=== PATIENT | male | born 1980 | race African-American/Black ===

== ENCOUNTER → 2024-11-16 | Outpatient (CLI) | payer OTHER, SELFPAY ==
--- NOTE | 2024-11-16 10:18 | MRI_ITS ---
PROCEDURE: SPINE LUMBAR W/WO CONTRAST 11/16/2024 REASON FOR EXAM: WORSENING LEFT PAIN X6 WEEKS, HX OF DISCECTOMY TECHNIQUE: Procedure Code: [id number] Modality: MR Procedure: SPINE LUMBAR W/WO CONTRAST Multiplanar and multisequence images were obtained without and with intravenous gadolinium-based contrast administration. Contrast: Clariscan. Amount: 28 mL. COMPARISON: Lumbar spine x-ray 10/23/2024. FINDINGS: Vertebrae: Preserved in height. Modic changes type 1 at the opposite endplates of L4 and L5. Congenital narrowing of the pedicles. Alignment: Retrolisthesis L5 on S1 by 2 mm. Conus Medullaris: Unremarkable. L1-2: Disc desiccation. Disc bulge. Severe canal stenosis. No foramina stenosis. L2-3: Disc bulge. Right paracentral and foraminal disc herniation measures 4 mm. Facet joint arthropathy and effusion. Severe right foramina stenosis. Severe canal stenosis. Mild left foramina stenosis. L3-4: Disc bulge. A 3 mm central disc protrusion with annular fissure. Facet joint arthropathy. Mild bilateral foramina stenosis. Severe canal stenosis. L4-5: Disc desiccation. Disc bulge. Status post left laminectomy. Left paracentral disc protrusion. Facet joint arthropathy. Severe left foramina stenosis with compression upon the exiting L4 nerve. Moderate right foramina stenosis. L5-S1: Disc bulge. A superimposed 6 mm central disc protrusion. Facet joint arthropathy and ligamentum flavum hypertrophy. Moderate bilateral foramina stenosis and abutment upon the exiting bilateral nerves. Sacrum: Unremarkable. Postcontrast images: Unremarkable. MRI/Spine Lumbar W/WO Contrast IMPRESSION: Status post left laminectomy at L4-L5. No abnormal enhancement or evidence of infectious process. Severe canal stenosis at the remainder disc levels due to disc bulges and conge nital narrowing of the canal. Reading Location: [facility]
--- OUTSIDE RECORDS SUMMARY | 2024-11-16 19:20 | XMS RPT_ITS | CCD ---
Author Organization [facility] Care Team Providers Care Cream Buyer Name Role Phone Paolachatocathie Angeli MCCLAIN Unavailable Unavailabl e Unavailable Primary Care Provider Unavailabl e Kita Bingham Attending Provider [phone] Renuka PANIAGUA, Dr. Suero Attending Provider NO, PHYSICIAN Primary Care Unavailable MALAIKA NICOLE JR. Attending Unav ailable HAJA, PHYSICIAN Primary Care Unavailable MALAIKA NICOLE JR. Attending Unav ailable Pio Grayson Attending Unavailable Kita Garay Attending Unavailable Kita Garay Referring Unavailable Kita Garay Attending Unavailable Medications Current Medications Medication Drug Class(es) Dates Sig (Normalized) Sig (Original) cyclobenzaprine hydrochloride 10 mg oral tablet (1 source) Muscle Relaxant Start: 10-23-2024 take 1 tablet by mouth three times daily as needed for muscle spasms Cyclobenzaprine 10 mg tablet Active 10 mg PO THREE TIMES A DAY as needed for muscle spasm 30 0 October 23, 2024 12:00am lidocaine 0.05 mg/mg medicated patch (2 sources) Antiarrhythmic, Amide Local Anesthetic Start: 04-01-2023 apply 1 dose transdermal route once daily, then apply 1 dose transdermal route every twelve hours lidocaine (Lidoderm) 5 % patch Apply 1 patch topically daily. Remove & discard patch within 12 hours or as directed by . 10 patch 0 04/01/2023 Active Start: 04-01-2023 End: 01-29-2024 1 patch, TransDERmal, Admini ster over 12 Hours, Once, On 04/01/23 at 1125, For 1 dose, Apply patch to lower back. Patch may remain in place for up to 12 hours in any 24 hour period. naproxen 500 mg oral tablet (1 source) Nonsteroidal Anti-inflammatory Drug Start: 04-01-2023 End: 04-16-2023 take 1 tablet by mouth in the morning naproxen (Naprosyn) 500 MG tablet Take 1 tablet (500 mg) by mouth in the morning and 1 tablet (500 mg) in the evening. Take with meals. Do all this for 15 days. 30 tablet 0 04/01/2023 04/16/2023 Active tiZANidine 4 mg oral tablet (1 source) Central alpha-2 Adrenergic Agonist Start: 04-01-2023 End: 04-08-2023 take 1 tablet by mouth every eight hours as needed tiZANidine (Zanaflex) 4 MG tablet Take 1 tablet (4 mg) by mouth every 8 hours as needed for muscle spasms for up to 7 days. 21 tablet 0 04/01/2023 04/08/2023 Active Completed/Discontinued Medications Medication Drug Class(es) Dates Sig (Normalized) Sig (Original) 1 ml ketorolac tromethamine 30 mg/ml cartridge (1 source) Nonsteroidal Anti-inflammatory Drug, Cyclooxygenase Inhibitor Start: 04-01-2023 End: 04-01-2023 ketorolac (Toradol) injection 30 mg 2 ml orphenadrine citrate 30 mg/ml injection (1 source) Muscle Relaxant Start: 04-01-2023 End: 04-01-2023 orphenadrine (Norflex) injection 60 mg Problems Active Problems Problem Classification Problem Date Documented Da te Episodic/Chronic Spondylosis; intervertebral disc disorders; other back problems (4 sources) Lumbago with sciatica, left side; Translations: [Radiculopathy, lumbar region] Onset: 10-12-2024 Episodic Sprains and strains (3 sources) Low back strain; Translations: [Strain of muscle, fascia and tendon of lower back, initial encounter] Onset: 04-01-2023 04-01-2023 Episodic Unclassified (1 source) Unknown / UNK(Unknown) Onset: 12-12-2017 Unclassified (1 source) Low back pain, unspecified; Translations: [Low back pain, unspecified] Onset: 11-04-2024 Past or Other Problems Problem Classification Problem Date Documented Da te Episodic/Chronic Unclassified (1 source) LEFT ANKLE PAIN Onset: 12-12-2017 Unclassified (1 source) Low back pain, unspecified; Translations: [Low back pain, unspecified] Onset: 11-04-2024 Results Test Name Value Interpretation Reference Range Facil ity ED Prov Noteon 11-04-2024 ED Prov Note ED PROVIDER NOTE [facility] EMERGENCY DEPART[facility] NAME: Rome Villeda AGE: 44 y.o. : 1980 VISIT DATE: 11/04/2024 CSN: [id number] PCP: No, Physician Chief Complaint Patient presents with Back Pain Patient has had 3 previous back surgeries and still has flareups of lower back pain. He saw an orthopedic surgeon in [facility] and has an MRI scheduled for November 20, 2024. 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 He refused to go to the hospital or seek medical attention there and drove approximately 7-1/2 hours back here today. He is having what he calls a bad flareup existing of lower back pain but no loss of bowel or bladder continence. He did take a muscle relaxer that was prescribed for him by the orthopedic surgeon while awaiting his MRI or prior to coming to the hospital here today. History reviewed. No pertinent past medical history. Past Surgical History: Procedure Laterality Date BACK SURGERY History reviewed. No pertinent family history. Social History [1] Previous Medications Medication Sig cyclobenzaprine (FLEXERIL) 10 MG tablet Take 1 (one) tablet (10 mg total) by mouth 3 (three) times a day as needed . [DISCONTINUED] HYDROcodone-acetaminoph en (NORCO) 5-325 mg per tablet Take 1 (one) tablet by mouth every 4 (four) hours as needed for pain . [DISCONTINUED] naproxen (EC NAPROSYN) 500 MG EC tablet Take 1 (one) tablet (500 mg total) by mouth 2 (two) times a day as needed . Allergies[2] Review of Systems Musculoskeletal: Positive for back pain. All other systems reviewed and are negative. Patient Vitals for the past 24 hrs: BP Temp Temp src Pulse Resp SpO2 Weight 11/04/24 1609 (!) 130/94 98.6 degrees F (37 degrees C) Oral 68 18 96 % (!) 139.7 kg (308 lb) Physical Exam Vitals and nursing note reviewed. Constitutional: Appearance: Normal appearance. HENT: Head: Normocephalic and atraumatic. Right Ear: External ear normal. Left Ear: External ear normal. Nose: Nose normal. Mouth/Throat: Mouth: Mucous membranes are moist. Eyes: Extraocular Movements: Extraocular movements intact. Conjunctiva/sclera: Conjunctivae normal. Cardiovascular: Rate and Rhythm: Normal rate. Musculoskeletal: Cervical back: Normal range of motion. Lumbar back: Spasms and tenderness present. Decreased range of motion. Comments: Paralumbar musculature bilaterally and left SI region pain with palpation. Pulmonary: Effort: Pulmonary effort is normal. Abdominal: General: There is no distension. Skin: General: Skin is warm and dry. Neurological: General: No focal deficit present. Mental Status: He is alert and oriented to person, place, and time. GCS: GCS eye subscore is 4. GCS verbal subscore is 5. GCS motor subscore is 6. Motor: Motor function is intact. Coordination: Coordination is intact. Gait: Gait is intact. Psychiatric: Mood and Affect: Mood normal. Behavior: Behavior normal. Laboratory & Radiographic Imaging (if done): No results found for this visit on 11/04/24. No orders to display Procedures Medical Decision Making Patient will continue with his Flexeril as needed will start on anti-inflammatory medication and I will give him a short amount of pain medication to use on an as needed basis for severe pain. He should contact his spinal specialist from [facility] or return to the ER if there is change worsening or new concern that arises. Amount and/or Complexity of Data Reviewed External Data Reviewed: notes. Details: 10/12/24 ER The patient has been informed that they may have pre-hypertension or hypertension based on a blood pressure reading in the Emergency Department. I recommend that the patient call the primary care provider listed on their discharge instructions or a physician of their choice as soon as possible to arrange follow-up in the next 4 weeks for further evaluation of possible pre-hypertension or hypertension. . Clinical Impression: 1. Bilateral low back pain, unspecified chronicity, unspecified whether sciatica present ED Disposition ED Disposition Discharge Condition Stable Comment Rome Villeda discharged to home/self care in stable condition. Follow-up Information 1. Kita Garay PA-C. Specialty: Physician Horizontal Drill Operator Why: AYAD to schedule appointment in 1-3 days [address] [facility] [facility] [facility] [address] Contact information for after-discharge care Follow-up information has not been specified. New Prescriptions HYDROcodone-acetaminoph en (NORCO) 5-325 mg per tablet Take 1 (one) tablet by mouth every 6 (six) hours as needed for pain . Discontinued Medications Disp Refills Start End naproxen (EC NAPROSYN) 500 MG EC tablet 10 tablet 0 10/12/2024 11/04/2024 Sig: Take 1 (one) tablet (500 mg total) by mouth 2 (two) t (more content not included)... Normal [facility] L/S Spine Min 4 Viewson 10-03 L/S Spine Min 4 Views [facility] Imaging Services [address] [place] [address] L/S Spine Min 4 Views MR#: [id number] Acct: [id number] Name: ROME VILLEDA Rep #: [id number] : 1980 M 44 From: Daiana Chu MD PCP: Status: DEP AMB Study: L/S Spine Min 4 Views Date of Exam: 10/23/24 Exam# [id number] Ordering Dr: Kita Garay PROCEDURE: L/S SPINE MIN 4 VIEWS 10/23/2024 REASON FOR EXAM: CHRONIC BACK PAIN TECHNIQUE: L/S SPINE MIN 4 VIEWS COMPARISON: None. FINDINGS: BONES: Five [id number] lumbar vertebral bodies. No fracture or focal osseous lesion. Minimal grade 1 retrolisthesis of L2 on L3, unchanged with flexion and extension. Nonspecific straightening of the normal lumbar lordosis. DISC/DEGENERATIVE CHANGES: Moderate L4-L5 and L5-S1 disc space narrowing with small vertebral endplate osteophytes. SOFT TISSUES: No acute abnormality seen. RAD/L/S Spine Min 4 Views IMPRESSION: 1. No acute osseous abnormality. 2. Nonspecific lumbar spine straightening, could reflect muscle spasm. 3. L4-L5 and L5-S1 degenerative disc disease. Reading Location: [id number] CC: PAOLA Aquino Relief Operator: Signed Normal [facility] Orthopedic Visit Reporton Orthopedic Visit Report [facility] [address] [place] [address] OFFICE VISIT Date of Service: 10/23/24 MR#: [id number] Acct: [id number] Name: ROME VILLEDA Rep #: [id number] : 1980 Provider: PAOLA Aquino Age/Sex: 44/M Location: [facility] Status: Signed Intake Vital Signs 10/23/24 10:55 Height 6 ft 7 in Weight: 302 lb BMI 34.0 Intake Visit Reasons: LUMBAR SPINE Accompanied by: Significant Other Allergies No Known Allergies Allergy (Unverified 10/23/24 11:06) Medications ???Medication ???Instructions ???Recorded ???Confirmed ???Type cyclobenzaprine 10 mg tablet 10 mg PO TID PRN muscle spasm #30 10/23/24 10/23/24 Rx tabs PFSH Surgical History (Updated 10/23/24 @ 12:09 by PAOLA Aquino) History of back surgery Family History (Updated 10/23/24 @ 11:08 by Ernestina Kuo) Uncle Diabetes Mother Arthritis Social History (Updated 10/23/24 @ 11:09 by Ernestina Kuo) household members: significant other and children Smoking Status: Current every day smoker tobacco type: cigarettes Tobacco: How many years used: 30 alcohol intake: current alcohol intake frequency: holidays/special occasions only HPI LUMBAR SPINE Details: This documentation accurately reflects the service provided and the decisions made by me, PAOLA Aquino 10/23/24 1053. Part of today???s visit was documented by Ludmila JURADO, acting as scribe. ROME VILLEDA is a 44 year old M here today for his lumbar spine. Patient states that he had had 3 back surgeries in 2017, 2018, 2019 at L4-5 for 2 herniated of the surgeries and a third surgery at a different level for a bulging disc. He does have pain on the left side that starts at the top of his left buttock and radiates down to his ankle. His pain started approximately 6 weeks ago. In that time his pain has changed. Initially his pain extended from the left buttock down the back and side of his left leg to his calf. This calf pain the patient describes as on occasion severe and has made it difficult for him to walk as it worsens with any standing or walking. Currently however his pain is all located on the left lateral calf. He does also have pain on the left lateral calf that feels like a belen horse. Says that over the last 6 weeks this symptom has worsened. Says that he will get occasional flares since his last surgery. Typically the lower back pain flare will last for about a week before it gets better. This current flare that he is and is lasting a lot longer and has been a lot more painful than what his typical flares are. When he was seen in the ED he was given a steroid and muscle relaxer which did not help with his pain. He does have some light numbness in the left leg. When he lays on his left side at night it help the left leg pain but if he lays on his right side the pain increases. The surgeon who did his surgery was Dr. Wale Solares in [place]. He does have weakness in his legs but he had had it since his surgery but denies any new or worsening leg weakness. He denies recent imaging of his lower back. He denies PT or injections. Been taking naproxen, muscle relaxer, and vicodin. No benefit with these. No diabetes, no heart or lung issues, no blood thinners. Patient has not done any physical therapy however he was taught home exercise program back in 2019 after his last surgery from physical therapy and he has been doing the stretches and exercises for his lower back daily over the last 6 weeks without any benefit. 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 Patient denies any worsening balance or dexterity issues. He says that during one of his fusion surgeries they had to go into his neck to relieve some pressure there. He denies any neck pain or radicular symptoms into his arms. Ortho Exam General General: Yes no acute distress Neurologic: Yes alert and Yes oriented x3 Psychologic: Yes reasonable and appropriate Spine SPINE TESTING CERVICAL THORACIC LUMBAR Musculoskeletal Strength 0=absent - 5=normal Details: Neurological exam of the lower extremities shows 5x5 power. Normal sensations across all dermatomes. There is left-sided knee hyperreflexia. No midline or paraspinal tenderness. Physical examination of the back shows a well-healed midline and right side transverse incision. Coding Level of Care Code Off vis,new,level 4 Diagnoses History of discectomy Z98.890 Lumbar radiculopathy M54.16 Assessment and Plan Assessment and Plan (1) History of discectomy: Status: Acute (2) Lumbar radiculopathy: Status: Acute Orders: Orders L/S Spine Min 4 Views Today M54. (more content not included)... Normal [facility] ED Prov Noteon 10-12-2024 ED Prov Note ED PROVIDER NOTE [facility] EMERGENCY DEPART[facility] NAME: Rome Villeda AGE: 44 y.o. : 1980 VISIT DATE: 10/12/2024 CSN: [id number] PCP: No, Physician Chief Complaint Patient presents with Leg Pain Patient has sciatic nerve pain for the past 3 to 4 days. He has had multiple surgeries on his lower back and neck and had the onset of pain 3 to 4 days ago in his left lower back radiating into his left buttock. He has had no loss of bowel or bladder continence. He has also had no recent injuries or falls. He will have flareups of his low back pain at completely random times with no association with movement position or anything else; prior to today, his previous flareup was 3 or 4 months ago and I just toughed it out and it went away on its own. History reviewed. No pertinent past medical history. Past Surgical History: Procedure Laterality Date BACK SURGERY History reviewed. No pertinent family history. Social History [1] No current outpatient medications on file prior to encounter. Allergies[2] Review of Systems Musculoskeletal: Positive for back pain. All other systems reviewed and are negative. Patient Vitals for the past 24 hrs: BP Temp Temp src Pulse Resp SpO2 Weight 10/12/24 1520 (!) 141/88 98.6 degrees F (37 degrees C) Oral 94 18 93 % (!) 142.9 kg (315 lb) Physical Exam Vitals and nursing note reviewed. Constitutional: Appearance: Normal appearance. HENT: Head: Normocephalic and atraumatic. Right Ear: External ear normal. Left Ear: External ear normal. Nose: Nose normal. Mouth/Throat: Mouth: Mucous membranes are moist. Eyes: Extraocular Movements: Extraocular movements intact. Conjunctiva/sclera: Conjunctivae normal. Cardiovascular: Rate and Rhythm: Normal rate. Musculoskeletal: Cervical back: Normal range of motion. Lumbar back: Spasms and tenderness present. No swelling, deformity or bony tenderness. Decreased range of motion. Positive left straight leg raise test. Comments: Most of the tenderness to palpation is in the left paralumbar musculature and left sciatic notch region. Pulmonary: Effort: Pulmonary effort is normal. Abdominal: General: There is no distension. Skin: General: Skin is warm and dry. Neurological: General: No focal deficit present. Mental Status: He is alert and oriented to person, place, and time. Motor: Motor function is intact. Coordination: Coordination is intact. Gait: Gait is intact. Psychiatric: Mood and Affect: Mood normal. Behavior: Behavior normal. Laboratory & Radiographic Imaging (if done): No results found for this visit on 10/12/24. No orders to display Procedures Medical Decision Making Will recommend ice or combination of ice and heat alternating as well as resting in a position of comfort. Will provide anti-inflammatory medication, muscle relaxers as needed, and pain medication as needed for severe pain. Will provide him with local primary care for follow-up and ask him to return to the ER for change worsening or new concern that arises. The patient has been informed that they may have pre-hypertension or hypertension based on a blood pressure reading in the Emergency Department. I recommend that the patient call the primary care provider listed on their discharge instructions or a physician of their choice as soon as possible to arrange follow-up in the next 4 weeks for further evaluation of possible pre-hypertension or hypertension. . Clinical Impression: 1. Left-sided low back pain with left-sided sciatica, unspecified chronicity ED Disposition ED Disposition Discharge Condition Stable Comment Rome Villeda discharged to home/self care in stable condition. Follow-up Information 1. [facility]. Why: [facility] to schedule appointment in 1-[address] days [address] [address] 2. Charli Escamilla MD. Specialty: Orthopedic Surgery Why: AYAD to schedule appointment in 1-3 days Samuel Merlos [facility] [address] Contact information for after-discharge care Follow-up information has not been specified. New Prescriptions naproxen (EC NAPROSYN) 500 MG EC tablet Take 1 (one) tablet (500 mg total) by mouth 2 (two) times a day as needed . cyclobenzaprine (FLEXERIL) 10 MG tablet Take 1 (one) tablet (10 mg total) by mouth 3 (three) times a day as needed . HYDROcodone-acetaminoph en (NORCO) 5-325 mg per tablet Take 1 (one) tablet by mouth every 4 (four) hours as needed for pain . [1] Social History Socioeconomic History Marital status: Single Tobacco Use Smoking status: Every Day Current packs/day: 1.00 Average packs/day: 1 pack/day for 25.0 years (25.0 ttl pk-yrs) Types: Cigarettes Smokeless tobacco: Never Vaping Use Vaping status: Never Used Substance and Sexual Activity Alcohol use: Never Drug use: Never [2] N (more content not included)... 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 CHIEF COMPLAINT Chief Complaint Patient presents with Back Pain Pt presents to ED with c/o R sided lower back pain since yesterday. Denies h/o kidney stones, dysuria, or dysuria. Denies any recents falls/trauma that would explain this pain. Pt is able to control bladder/stool. HISTORY OF PRESENT ILLNESS (Location/Symptom, Timing/Onset, Context/Setting, Quality, Duration, Modifying Factors, Severity) Note limiting factors. I wore appropriate PPE for the entirety of this encounter. HPI Rome Villeda is a 42 y.o. who presents to the emergency department with chief complaint of with midline low back pain since yesterday. Patient states he had a surgery for herniated disc years ago in [place] has had some issues with this from time to time, no red flags such as renal disease, alcohol abuse, IV drug use. No falls injury or trauma. Denies radicular symptoms. Denies fevers or chills bowel or bladder incontinence or fecal or urinary retention. Nursing Notes were reviewed. Limitations to history: None Outside historians: None REVIEW OF SYSTEMS Review of Systems Constitutional: Negative for activity change, appetite change, chills and fever. HENT: Negative for congestion, nosebleeds, postnasal drip, sore throat and trouble swallowing. Eyes: Negative for pain and visual disturbance. Respiratory: Negative for cough and shortness of breath. Cardiovascular: Negative for chest pain. Gastrointestinal: Negative for abdominal pain, nausea and vomiting. Genitourinary: Negative for dysuria, flank pain, hematuria, penile discharge, scrotal swelling and testicular pain. Musculoskeletal: Positive for arthralgias, back pain and myalgias. Negative for joint swelling and neck stiffness. Skin: Negative for rash and wound. Neurological: Negative for dizziness, syncope, weakness and light-headedness. Psychiatric/Behavioral: Negative for agitation and confusion. All other systems reviewed and are negative. Pertinent positives and negatives as per HPI. PAST MEDICAL HISTORY History reviewed. No pertinent past medical history. SURGICAL HISTORY Past Surgical History: Procedure Laterality Date BACK SURGERY CURRENT MEDICATIONS Previous Medications No medications on file ALLERGIES Patient has no known allergies. FAMILY HISTORY No family history on file. SOCIAL HISTORY Social History Socioeconomic History Marital status: Single Tobacco Use Smoking status: Every Day Packs/day: 1 Types: Cigarettes Smokeless tobacco: Never Vaping Use Vaping Use: Every day Substance and Sexual Activity Alcohol use: Yes Comment: occasionally Drug use: Never SCREENINGS PHYSICAL EXAM ED Triage Vitals [04/01/23 1120] Temp Heart Rate Resp BP 37.1 ?C (98.8 ?F) 88 16 (!) 145/93 SpO2 Temp Source Heart Rate Source Patient Position 96 % Temporal Monitor -- BP Location FiO2 (%) -- -- Physical Exam Vitals and nursing note reviewed. Constitutional: General: He is not in acute distress. Appearance: Normal appearance. He is not ill-appearing or toxic-appearing. HENT: Head: Normocephalic and atraumatic. Right Ear: External ear normal. Left Ear: External ear normal. Mouth/Throat: Mouth: Mucous membranes are moist. Pharynx: Oropharynx is clear. Eyes: Extraocular Movements: Extraocular movements intact. Conjunctiva/sclera: Conjunctivae normal. Pupils: Pupils are equal, round, and reactive to light. Cardiovascular: Comments: Regular rate and rhythm, normal S1-S2, no murmurs noted. Radial pulses 2+ metric. Pulmonary: Effort: Pulmonary effort is normal. No respiratory distress. Breath sounds: Normal breath sounds. No stridor. No wheezing or rhonchi. Musculoskeletal: Cervical back: Normal range of motion and neck supple. No rigidity or tenderness. Comments: There is no pain on palpation to the spine. Straight leg raise is negative on the left and right. There is no weakness noted with adduction of either thigh. There is no weakness noted hip flexion, knee extension, knee flexion. There is no weakness noted to dorsiflexion of the foot, dorsiflexion of the great toe or plantarflexion of the foot. Patellar reflexes are 2+ bilaterally. DP pulses are 2+. There are no sensory deficits to the lower extremities, no saddle anesthesia. Sensation is intact to the groin, perianal sensation is intact. Lymphadenopathy: Cervical: No cervical adenopathy. Skin: General: Skin is warm and dry. Capillary Refill: Capillary refill takes less than 2 seconds. Coloration: Skin is not jaundiced or pale. Findings: No bruising or erythema. Neurological: General: No focal deficit present. Mental S (more content not included)... Normal [facility] ED.PDOCon 05-13-2018 ED.PDOC ROME VILLEDA Male [id number] Attending provider: PRE ER ER [id number] Guido Barnett 1980 37 DOS: 05/13/18 Hx/Exam - History of Present Illness Chief Complaint: BACK PAIN Additional Comments: Patient has chronic back pain which he sees Dr. Solares 4. He is takingAnti-inflammatori es but it is not helping. He is supposed to see his doctor today. Today he was getting out of a chair and his back locked up and he fell back down into the chair and felt a pop in his back. No numbness around his rectum or urine or bowel incontinence or retention. No other complaints other than low back pain. - Review of Systems All Other Systems: Pertinent Positives in HPI, All Other Systems Negative Cardiovascular: Denies: Chest Pain Gastrointestinal: Denies: Nausea, Vomiting Musculoskeletal: Back Pain - Past Medical History General History: - Past Surgical History Surgical History: Yes Other (disc herniation, neck) - Social History Smoking Status: Current every day smoker Hx Alcohol Use: Yes Living Conditions: Family - Physical Exam General Appearance: awake, alert, no apparent distress Eyes: conjunctivae clear Head, Ears, Nose, and Throat: mucous membranes moist Neck: full ROM Respiratory: no respiratory distress Back: normal ROM Extremity: normal inspection Neurologic: no motor/sensory deficits, speech clear/fluent Psychiatric: calm, normal affect Skin Exam: warm/dry, normal color - Source of History Source of History: Nursing Notes/Vital Signs/Triage Reviewed and Agree, Old Medical Records Reviewed Note(s) - Physician Notes Additional Notes, See Orders for Details: 05/13/18 03:25 Patient was treated in the emergency department with IM Dilaudid and Norflex. He has an appointment with his back surgeon today so he would not be prescribed any stronger pain medication As this is a chronic issue for him. EKG - EKG EKG Interpretation: Not Applicable Discharge Screen - Discharge Discharge Problem: Back pain Disposition: HOME/SELF CARE Condition: Stable Instructions: DI for Low Back Pain Referrals: Pretty Scales [Primary Care Provider] - Dictated By: Guido Barnett DO Dictated Date/Time:05/13/18311 Electronically Signed Date/Time: 05/13/18325 [facility] ED.PDOCon 04-21-2018 ED.PDOC ROME VILLEDA Male [id number] Attending provider: RADAMES TROY [id number] Kalli Nelson 1980 37 DOS: 04/21/18 Hx/Exam - History of Present Illness Chief Complaint: BACK PAIN Location: lower Symptom Duration: 3-4 days Intensity: moderate Episode Frequency: constant Symptoms Improve with: none Symptoms Worse with: standing Additional Comments: Patient has a history of chronic lower back pain with previous surgeries. He says worse pain for the past 4 days. Denies any new injury. No neurologic symptoms. - Review of Systems All Other Systems: Pertinent Positives in HPI, All Other Systems Negative - Past Medical History General History: - Past Surgical History Surgical History: Yes Other (disc herniation, neck) - Social History Smoking Status: Unknown if ever smoked Hx Alcohol Use: Yes Living Conditions: Family - Physical Exam General Appearance: awake, alert, no apparent distress Eyes: PERRL, EOMI, conjunctivae clear Head, Ears, Nose, and Throat: mucous membranes moist Neck: supple, non-tender, no bony tenderness Respiratory: lungs clear, no wheezes/rhonchi/rales, no respiratory distress, no accessory muscle use Cardiovascular: regular rate, rhythm, no murmur Abdomen/GI: non tender, soft, non-distended Back: no CVA tenderness, no vertebral tenderness Extremity: normal range of motion, non-tender Neurologic: no motor/sensory deficits Psychiatric: oriented x3, calm, normal affect Skin Exam: warm/dry - Source of History Source of History: Nursing Notes/Vital Signs/Triage Reviewed and Agree, Additional Hx from Relatives, Old Medical Records Reviewed Note(s) - Physician Notes Additional Notes, See Orders for Details: 04/21/18 20:21 Patient currently takes diclofenac and a muscle relaxer for his symptoms. They have not been helping at home. We will give him a short term course of the medication and he will follow with his orthopedic surgeon EKG - EKG EKG Interpretation: Not Applicable Discharge Screen - Discharge Discharge Problem: Back pain Disposition: HOME/SELF CARE Condition: Good Instructions: DI for Low Back Pain Prescriptions: Hydrocodone-Acetaminoph en [Murphy 5-325 mg] 1 tab PO Q6H PRN 3 Days #12 tab PRN Reason: Pain Referrals: Pretty Scales [Primary Care Provider] - Dictated By: Kalli Nelson MD Dictated Date/Time:04/21/182003 Electronically Signed Date/Time: 04/21/182023 [facility] ED.PDOCon 02-04-2018 ED.PDOC ROME VILLEDA Male [id number] Attending provider: PRE ER ER [id number] Marisol Sánchez 1980 37 DOS: 02/04/18 Hx/Exam - History of Present Illness Chief Complaint: RASH Location: bilateral forearms Symptom Duration: 2 Symptom Duration: Day(s) Onset of Symptoms: acute s/p putting on old coat Intensity: mild-moderate Quality: red bumps Episode Frequency: constant Radiations: not applicable Symptoms Improve with: none Symptoms Worse with: itching Assoc Sxs/Pertinent Hx: itching Patient/Family Denies: fevers, CP, SOb, sore throat/swelling, N/V/D, abd pain, dizziness, HUYNH Additional Comments: no h/o DM - Review of Systems All Other Systems: Pertinent Positives in HPI, All Other Systems Negative Constitutional: Denies: Fever, Chills, Sweats, Weakness, Malaise Eyes: Denies: Pain, Blurred Vision, Double Vision, Conjunctivae Inflammation, Eyelid Inflammation, Redness, Eye Discharge ENT: Denies: Ear Pain, Nose Congestion, Mouth Pain, Mouth Swelling, Throat Pain, Throat Swelling Respiratory: Denies: Cough, Shortness of Breath, Wheezing Cardiovascular: Denies: Chest Pain, Light Headedness Gastrointestinal: Denies: Nausea, Vomiting, Abdominal Pain, Diarrhea Skin: Rash. Denies: Lesions, Jaundice, Laceration, Abrasion, Bruising Neurological: Denies: Headache, Weakness, Numbness, Incoordination, Change in Speech, Confusion, Seizures - Past Medical History General History: - Past Surgical History Surgical History: Yes Other (disc herniation, neck) - Social History Smoking Status: Current every day smoker Hx Alcohol Use: Yes - Physical Exam General Appearance: awake, alert, no apparent distress Eyes: PERRL, EOMI, conjunctivae clear Head, Ears, Nose, and Throat: pharynx normal, mucous membranes moist Neck: supple, no stridor, full ROM, no meningeal signs Respiratory: lungs clear, no wheezes/rhonchi/rales, no respiratory distress Cardiovascular: regular rate, rhythm, no murmur Extremity: normal range of motion, non-tender, normal inspection, normal capillary refill Pulses: Radial: 2+ Neurologic: no motor/sensory deficits, normal gait, normal strength, normal sensation, speech clear/ fluent Psychiatric: oriented x3, calm Skin Exam: warm/dry, normal color, rash (fine maculopapular rash on bilateral forearms, nothing on hands/web spaces, no celluitis or abscess) - Source of History Source of History: Nursing Notes/Vital Signs/Triage Reviewed and Agree Note(s) - Physician Notes Additional Notes, See Orders for Details: 02/04/18 15:[address] Nicole. 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 Pt will be placed on prednisone. Advised take benadryl PRN itching. Likely contact derm from old coat. EKG - EKG EKG Interpretation: Not Applicable Discharge Screen - Discharge Discharge Problem: Contact dermatitis Disposition: HOME/SELF CARE Additional Instructions: benadryl for itching Condition: Good Instructions: DI for Contact Dermatitis Prescriptions: PredniSONE [Prednisone] 40 mg PO DAILY 4 Days #8 tab Referrals: Pretty Scales [Primary Care Provider] - 2-3 Days Dictated By: Marisol Sánchez PA-C Dictated Date/Time:02/04/18 1534 Electronically Signed Date/Time: 02/04/18 1545 [facility] ANKLE COMP MIN 3 VWS LTon ANKLE COMP MIN 3 VWS LT ANKLE COMP MIN 3 VWS LTOrdering Physician: Vito Jane MD12/12/2017 1:38 PMLEFT ANKLE THREE VIEWSClinical Statement: Pain status post fallComparison: NoneFINDINGS: There is no acute fracture or joint dislocation. The anklemortise is maintained. The joint spaces are appropriate for age. Thehindfoot anatomy is unremarkable. There are no concerning bonelesions. There is no joint effusion.IMPRESSION:Neg ative left ankle. ---- Electronic Signature on File ----Signed By: Yg Rees [email or web address] tated: 12/12/2017 2:26 PMSigned: 12/12/2017 2:26 PM Reported By: YG REES M.D. Signed By: YG REES M.D. [facility] 12-12-2017 [facility] DATE OF SERVICE: 12/12/2017CHIEF COMPLAINT: Left ankle pain.HISTORY OF PRESENT ILLNESS: The patient states that he was at therapy working outyesterday when he jumped and landed incorrectly on the left foot, causing his ankleto invert and he is now having pain on the lateral aspect of the left ankle. Limpingand able to ambulate. No numbness or tingling. No other area of injury. He has noticed it or taken any medication for it. No history of injury to the ankle. He is intherapy currently for back surgery he had back in July 2016.REVIEW OF SYSTEMS: As per HPI.PAST MEDICAL HISTORY/SURGICAL HISTORY/FAMILY HISTORY/SOCIAL HISTORY: Reviewed.PHYSICAL EXAMINATION: Vital signs: Blood pressure 121/86, pulse 77, respiratoryrate 14, temperature 98.7, pulse oximetry 98% on room. General: The patient is wellappearing, sitting on exam room bed, in no apparent distress at the time. HEENT:Normal. Neck: Supple. Respiratory: No respiratory distress. Cardiovascular:Regular rate and rhythm. Extremities: Edema noted to lateral aspect of the leftankle. Tenderness to palpation over the lateral malleolus. Increased pain upondorsiflexion, plantar flexion, and inversion. Able to ambulate with a slightlyantalgic gait secondary to the pain. Dorsalis pedis pulses normal and equal.Sensation intact. Brisk capillary refill noted.IMAGING: X-ray left ankle, no acute abnormalities noted.IMPRESSION: The patient diagnosed with acute left ankle sprain. He needs to rest,ice, elevate, and take ibuprofen for the pain and inflammation. I gave him areferral to [facility] to follow up if this does not get any better in the next week or2. He was excused from work for a couple days and will follow up with his familydoctor as well. Daljit wrap was given for stabilization. He was agreeable to thisplan. All questions answered.The patient evaluated, examined, and treated under the supervision of Dr. Jane, whoagrees with the plan.Angeli Ritter PA-C dictating for ___JOSEPHINE Coelho/[id number]: 12/12/2017 13:54 [facility] PATIENT NAME: ROME VILLEDA [id number] [facility] [address] Pedro MEDICAL REC #: [id number] [address] [facility] RE[facility] PHYSICIANDT: 12/14/2017 20:48[facility] File#: [id number] #: [id number]/Reviewed by12/17/17 153Neha JOHNSONROBERTA [facility] PATIENT NAME: ROME VILLEDA [facility] [address] Pedro MEDICAL REC #: [id number], [place] [address] [facility] RE[facility] PHYSICIAN [facility] Vital Signs Date Time Vital Sign Value Performing Clinician Jayden dey 10-23-2024 10:55-0400 Body height 200.66 cm Kita GUEVARA Work Phone: [facility] 10-23-2024 10:55-0400 Body mass index (BMI) [Ratio] 34 kg/m2 Kita GUEVARA Work Phone: [facility] 10-23-2024 10:55-0400 Body weight 136.98 kg Kita GUEVARA Work Phone: [facility] 04-01-2023 11:21-0500 Body weight 140.62 kg [facility] 04-01-2023 11:21-0500 SaO2% (BldA) [Mass fraction] 96 % [facility] 04-01-2023 11:20-0500 Body temperature 98.8 [degF] [facility] 04-01-2023 11:20-0500 Diastolic blood pressure 93 mm[Hg] [facility] 04-01-2023 11:20-0500 Heart rate 88 /min [facility] 04-01-2023 11:20-0500 Respiratory rate 16 /min [facility] 04-01-2023 11:20-0500 Systolic blood pressure 145 mm[Hg] [facility] Encounters Encounter Date Encounter Type Care Provider Facility Start: 11-16-2024 ambulatory Kita Fulk Facility:[facility] Start: 11-04-2024 End: 11-04-2024 Emergency department patient visit PHYSICIAN NO [facility] Start: 10-23-2024 End: 10-23-[address] Pio Grayson MD -[facility] Start: 10-23-2024 End: 10-23-2024 ambulatory Kita Garay -[facility] Start: 10-12-2024 End: 10-12-2024 Emergency department patient visit PHYSICIAN NO [facility] Start: 04-01-2023 End: 04-01-2023 Emergency department patient visit [facility] Start: 04-01-2023 End: 04-01-2023 Emergency department patient visit [facility] Comment on above: Lumbar strain, initi al encounter (Primary Dx) Start: 12-12-2017 Patient encounter Angeli ROGERS Facility:[facility] Plan of Treatment Date Care Activity Detail Author Start: 2040 RSV Immunization aged 60 or older (1 - 1-dose 60+ series) RSV Immunization aged 60 or older (1 - 1-dose 60+ series) [facility] Start: 2030 Zoster Vaccines (1 of 2) Zoster Vaccines (1 of 2) [facility] Start: 10-23-2024 X-ray of lumbosacral spine L/S Spine Min 4 Views [facility] Start: 10-23-2024 XR Spine Lumbar and Sacrum GE 4 Views [facility] Start: 11-02-2022 Influenza vaccination Influenza Vaccine (#1) [facility] Start: 10-07-1999 DTaP/Tdap/Td Vaccines (1 - Tdap) DTaP/Tdap/Td Vaccines (1 - Tdap) [facility] Start: 1998 Hepatitis C screening Hepatitis C Screening [facility] Start: 1992 Depression Screening Depression Screening [facility] Start: 1986 Pneumococcal Vaccine: Pediatrics (0 to 5 Years) and At-Risk Patients (6 to 64 Years) (1 of 2 - PCV) Pneumococcal Vaccine: Pediatrics (0 to 5 Years) and At-Risk Patients (6 to 64 Years) (1 of 2 - PCV) [facility] Start: 1981 MMR Vaccines (1 of 1 - Standard series) MMR Vaccines (1 of 1 - Standard series) [facility] Start: 1981 Varicella vaccination Varicella Vaccines (1 of 2 - 2-dose childhood series) [facility] Start: 04-08-1981 COVID-19 Vaccine (#1) COVID-19 Vaccine (#1) [facility] Start: 1980 Hepatitis B Vaccines (1 of 3 - 3-dose series) Hepatitis B Vaccines (1 of 3 - 3-dose series) [facility] Start: 1980 HIV screening HIV Screening [facility] Start: 1980 Lipid panel Lipid Panel [facility] Payers Date Payer Category Payer Unknown [id number] 2024 Self-pay 2024 Unknown [id number] 1980 Unknown [id number] 1980 Unknown [id number] [id number]. [id number] Unknown [id number] Unknown [id number] 2.16.8 [id number] Unknown [id number] 2.16.8 [id number] Unknown [id number] 2.16.8 [id number] Unknown [id number] 2.16.8 [id number] Social History Date Type Detail Facility Start: 04-01-2023 End: 10-23-2024 Tobacco smoking status NJIS Smokes tobacco daily [facility] History of tobacco use Cigarette Smoker S [facility] Start: 04-01-2023 Cigarettes smoked current (pack per day) - Reported 1 [facility] Start: 04-01-2023 Tobacco use and exposure Smokeless tobacco non-user [facility] Start: 04-01-2023 Alcohol intake Current drinke r of alcohol (finding) [facility] Start: 04-01-[address] [facility] Start: 1980 Sex Assigned At Not on file S [facility] Gender identity Not on file [facility] Start: 1980 Sex Assigned At Male [facility] Hospital Discharge instructions 04-01-2023 Discharge InstructionsAttachments Note Date & Type Note Facility 04-01-2023 Hospital Discharg e instructions SHIRLEY Jameson CNP - 04/01/2023 11:21 AM EST No driving with the muscle relaxers The following attachments cannot be sent through Care Everywhere.Back Muscle Strain (Albanian)Exercise Band Exercises for the Back and Hips (Albanian)documented in this encounter [facility] Emergency department Note 04-01-2023 SHIRLEY Jameson CNP - 04/01/2023 10:38 AM EST Note Date & Type Note Facility 04-01-2023 Emergency departm ent Note EMERGENCY DEPARTMENT ENCOUNTER Pt Name: Rome Villeda Birthdate 1980 Date of evaluation: 04/01/2023 ED Provider: SHIRLEY Jameson CNP I have evaluated this patient on my own, per my scope of practice with an attending physician available for consultation. CHIEF COMPLAINT Chief Complaint Patient presents with Back Pain Pt presents to ED with c/o R sided lower back pain since yesterday. Denies h/o kidney stones, dysuria, or dysuria. Denies any recents falls/trauma that would explain this pain. Pt is able to control bladder/stool. HISTORY OF PRESENT ILLNESS (Location/Symptom, Timing/Onset, Context/Setting, Quality, Duration, Modifying Factors, Severity) Note limiting factors. I wore appropriate PPE for the entirety of this encounter. HPI Roem Villeda is a 42 y.o. who presents to the emergency department with chief complaint of with midline low back pain since yesterday. Patient states he had a surgery for herniated disc years ago in [place] has had some issues with this from time to time, no red flags such as renal disease, alcohol abuse, IV drug use. No falls injury or trauma. Denies radicular symptoms. Denies fevers or chills bowel or bladder incontinence or fecal or urinary retention. Nursing Notes were reviewed. Limitations to history: None Outside historians: None REVIEW OF SYSTEMS Review of Systems Constitutional: Negative for activity change, appetite change, chills and fever. HENT: Negative for congestion, nosebleeds, postnasal drip, sore throat and trouble swallowing. Eyes: Negative for pain and visual disturbance. Respiratory: Negative for cough and shortness of breath. Cardiovascular: Negative for chest pain. Gastrointestinal: Negative for abdominal pain, nausea and vomiting. Genitourinary: Negative for dysuria, flank pain, hematuria, penile discharge, scrotal swelling and testicular pain. Musculoskeletal: Positive for arthralgias, back pain and myalgias. Negative for joint swelling and neck stiffness. Skin: Negative for rash and wound. Neurological: Negative for dizziness, syncope, weakness and light-headedness. Psychiatric/Behavioral: Negative for agitation and confusion. All other systems reviewed and are negative. Pertinent positives and negatives as per HPI. PAST MEDICAL HISTORY History reviewed. No pertinent past medical history. SURGICAL HISTORY Past Surgical History: Procedure Laterality Date BACK SURGERY CURRENT MEDICATIONS Previous Medications No medications on file ALLERGIES Patient has no known allergies. FAMILY HISTORY No family history on file. SOCIAL HISTORY Social History Socioeconomic History Marital status: Single Tobacco Use Smoking status: Every Day Packs/day: 1 Types: Cigarettes Smokeless tobacco: Never Vaping Use Vaping Use: Every day Substance and Sexual Activity Alcohol use: Yes Comment: occasionally Drug use: Never SCREENINGS PHYSICAL EXAM ED Triage Vitals [04/01/23 1120] Temp Heart Rate Resp BP 37.1 C (98.8 F) 88 16 (!) 145/93 SpO2 Temp Source Heart Rate Source Patient Position 96 % Temporal Monitor -- BP Location FiO2 (%) -- -- Physical Exam Vitals and nursing note reviewed. Constitutional: General: He is not in acute distress. Appearance: Normal appearance. He is not ill-appearing or toxic-appearing. HENT: Head: Normocephalic and atraumatic. Right Ear: External ear normal. Left Ear: External ear normal. Mouth/Throat: Mouth: Mucous membranes are moist. Pharynx: Oropharynx is clear. Eyes: Extraocular Movements: Extraocular movements intact. Conjunctiva/sclera: Conjunctivae normal. Pupils: Pupils are equal, round, and reactive to light. Cardiovascular: Comments: Regular rate and rhythm, normal S1-S2, no murmurs noted. Radial pulses 2+ metric. Pulmonary: Effort: Pulmonary effort is normal. No respiratory distress. Breath sounds: Normal breath sounds. No stridor. No wheezing or rhonchi. Musculoskeletal: Cervical back: Normal range of motion and neck supple. No rigidity or tenderness. Comments: There is no pain on palpation to the spine. Straight leg raise is negative on the left and right. There is no weakness noted with adduction of either thigh. There is no weakness noted hip flexion, knee extension, knee flexion. There is no weakness noted to dorsiflexion of the foot, dorsiflexion of the great toe or plantarflexion of the foot. Patellar reflexes are 2+ bilaterally. DP pulses are 2+. There are no sensory deficits to the lower extremities, no saddle anesthesia. Sensation is intact to the groin, perianal sensation is intact. Lymphadenopathy: Cervical: No cervical adenopathy. Skin: General: Skin is warm and dry. Capillary Refill: Capillary refill takes less than 2 seconds. Coloration: Skin is not jaundiced or pale. Findings: No bruising or erythema. Neurological: General: No focal deficit present. Mental Status: He is alert and oriented to person, place, and time. Mental status is at baseline. Cranial Nerves: No cranial nerve deficit. Sensory: No sensory deficit. Motor: No weakness. Coordination: Coordination normal. Psychiatric: Mood and Affect: Mood normal. DIAGNOSTIC RESULTS Procedures/EKG: EKG was reviewed by myself. Physician EKG interpretation can be found in [facility] RADIOLOGY (Per Emergency Physician): Interpretation per the Radiologist below, if available at the time of this note: No orders to display ED BEDSIDE ULTRASOUND: Performed by ED Physician - none LABS: Labs Reviewed - No data to display All other labs were within normal range or not returned as of this dictation. EMERGENCY DEPARTMENT COURSE and DIFFERENTIAL DIAGNOSIS/MDM: Vitals: Vitals: 04/01/23 1120 04/01/23 1121 BP: (!) 145/93 Pulse: 88 Resp: 16 Temp: 37.1 C (98.8 F) TempSrc: Temporal SpO2: 96% 96% Weight: (!) 141 kg (310 lb) Diagnoses as of 04/01/23 1139 Lumbar strain, initial encounter The patient presented with chief complaint of with chief complaint of with midline low back pain since yesterday. Patient states he had a surgery for herniated disc years ago in [place] has had some issues with this from time to time, no red flags such as renal disease, alcohol abuse, IV drug use. No falls injury or trauma. Denies radicular symptoms. Denies fevers or chills bowel or bladder incontinence or fecal or urinary retention.. The differential diagnosis associated with this patient's presentation includes lumbar strain, acute exacerbation of chronic low back pain. Diagnostic tests considered but not performed: Considered x-rays but there was no fall or trauma, considered laboratory studies but he has no red flag symptoms and a normal high-sensitivity neuroexam The patient will be discharged with symptom control and PCP follow-up. Patient is in agreement with this plan. Medications ketorolac (Toradol) injection 30 mg (has no administration in time range) orphenadrine (Norflex) injection 60 mg (has no administration in time range) Lidocaine 4 % patch 1 patch (has no administration in time range) REVAL: CRITICAL CARE TIME None CONSULTS: None PROCEDURES: Unless otherwise noted below, none Procedures Patients symptoms are consistent with sepsis, severe sepsis, or septic shock (If yes use .sepsiscoremeasure): no FINAL IMPRESSION 1. Lumbar strain, initial encounter DISPOSITION Discharge 04/01/2023 11:21:13 AM PATIENT REFERRED TO: No follow-up provider specified. DISCHARGE MEDICATIONS: New Prescriptions LIDOCAINE (LIDODERM) 5 % PATCH Apply 1 patch topically daily. Remove & discard patch within 12 hours or as directed by MD. NAPROXEN (NAPROSYN) 500 MG TABLET Take 1 tablet (500 mg) by mouth in the morning and 1 tablet (500 mg) in the evening. Take with meals. Do all this for 15 days. TIZANIDINE (ZANAFLEX) 4 MG TABLET Take 1 tablet (4 mg) by mouth every 8 hours as needed for muscle spasms for up to 7 days. (Comment: Please note this report has been produced using speech recognition software and may contain errors related to that system including errors in grammar, punctuation, and spelling, as well as words and phrases that may be inappropriate. If there are any questions or concerns please feel free to contact the dictating provider for clarification.) SHIRLEY Jameson CNP (electronically signed) Emergency Medicine Provider SHIRLEY Jameson CNP 04/01/23 1141 documented in this encounter [facility] Physician Emergency department Note 04-01-2023 SHIRLEY Jameson CNP - 04/01/2023 10:38 AM EST Note Date & Type Note Facility 04-01-2023 Physician Emergen cy department Note EMERGENCY DEPARTMENT ENCOUNTER Pt Name: Rome Villeda Birthdate 1980 Date of evaluation: 04/01/2023 ED Provider: SHIRLEY Jameson CNP I have evaluated this patient on my own, per my scope of practice with an attending physician available for consultation. CHIEF COMPLAINT Chief Complaint Patient presents with Back Pain Pt presents to ED with c/o R sided lower back pain since yesterday. Denies h/o kidney stones, dysuria, or dysuria. Denies any recents falls/trauma that would explain this pain. Pt is able to control bladder/stool. HISTORY OF PRESENT ILLNESS (Location/Symptom, Timing/Onset, Context/Setting, Quality, Duration, Modifying Factors, Severity) Note limiting factors. I wore appropriate PPE for the entirety of this encounter. HPI Rome Villeda is a 42 y.o. who presents to the emergency department with chief complaint of with midline low back pain since yesterday. Patient states he had a surgery for herniated disc years ago in [place] has had some issues with this from time to time, no red flags such as renal disease, alcohol abuse, IV drug use. No falls injury or trauma. Denies radicular symptoms. Denies fevers or chills bowel or bladder incontinence or fecal or urinary retention. Nursing Notes were reviewed. Limitations to history: None Outside historians: None REVIEW OF SYSTEMS Review of Systems Constitutional: Negative for activity change, appetite change, chills and fever. HENT: Negative for congestion, nosebleeds, postnasal drip, sore throat and trouble swallowing. Eyes: Negative for pain and visual disturbance. Respiratory: Negative for cough and shortness of breath. Cardiovascular: Negative for chest pain. Gastrointestinal: Negative for abdominal pain, nausea and vomiting. Genitourinary: Negative for dysuria, flank pain, hematuria, penile discharge, scrotal swelling and testicular pain. Musculoskeletal: Positive for arthralgias, back pain and myalgias. Negative for joint swelling and neck stiffness. Skin: Negative for rash and wound. Neurological: Negative for dizziness, syncope, weakness and light-headedness. Psychiatric/Behavioral: Negative for agitation and confusion. All other systems reviewed and are negative. Pertinent positives and negatives as per HPI. PAST MEDICAL HISTORY History reviewed. No pertinent past medical history. SURGICAL HISTORY Past Surgical History: Procedure Laterality Date BACK SURGERY CURRENT MEDICATIONS Previous Medications No medications on file ALLERGIES Patient has no known allergies. FAMILY HISTORY No family history on file. SOCIAL HISTORY Social History Socioeconomic History Marital status: Single Tobacco Use Smoking status: Every Day Packs/day: 1 Types: Cigarettes Smokeless tobacco: Never Vaping Use Vaping Use: Every day Substance and Sexual Activity Alcohol use: Yes Comment: occasionally Drug use: Never SCREENINGS PHYSICAL EXAM ED Triage Vitals [04/01/23 1120] Temp Heart Rate Resp BP 37.1 C (98.8 F) 88 16 (!) 145/93 SpO2 Temp Source Heart Rate Source Patient Position 96 % Temporal Monitor -- BP Location FiO2 (%) -- -- Physical Exam Vitals and nursing note reviewed. Constitutional: General: He is not in acute distress. Appearance: Normal appearance. He is not ill-appearing or toxic-appearing. HENT: Head: Normocephalic and atraumatic. Right Ear: External ear normal. Left Ear: External ear normal. Mouth/Throat: Mouth: Mucous membranes are moist. Pharynx: Oropharynx is clear. Eyes: Extraocular Movements: Extraocular movements intact. Conjunctiva/sclera: Conjunctivae normal. Pupils: Pupils are equal, round, and reactive to light. Cardiovascular: Comments: Regular rate and rhythm, normal S1-S2, no murmurs noted. Radial pulses 2+ metric. Pulmonary: Effort: Pulmonary effort is normal. No respiratory distress. Breath sounds: Normal breath sounds. No stridor. No wheezing or rhonchi. Musculoskeletal: Cervical back: Normal range of motion and neck supple. No rigidity or tenderness. Comments: There is no pain on palpation to the spine. Straight leg raise is negative on the left and right. There is no weakness noted with adduction of either thigh. There is no weakness noted hip flexion, knee extension, knee flexion. There is no weakness noted to dorsiflexion of the foot, dorsiflexion of the great toe or plantarflexion of the foot. Patellar reflexes are 2+ bilaterally. DP pulses are 2+. There are no sensory deficits to the lower extremities, no saddle anesthesia. Sensation is intact to the groin, perianal sensation is intact. Lymphadenopathy: Cervical: No cervical adenopathy. Skin: General: Skin is warm and dry. Capillary Refill: Capillary refill takes less than 2 seconds. Coloration: Skin is not jaundiced or pale. Findings: No bruising or erythema. Neurological: General: No focal deficit present. Mental Status: He is alert and oriented to person, place, and time. Mental status is at baseline. Cranial Nerves: No cranial nerve deficit. Sensory: No sensory deficit. Motor: No weakness. Coordination: Coordination normal. Psychiatric: Mood and Affect: Mood normal. DIAGNOSTIC RESULTS Procedures/EKG: EKG was reviewed by myself. Physician EKG interpretation can be found in [facility] RADIOLOGY (Per Emergency Physician): Interpretation per the Radiologist below, if available at the time of this note: No orders to display ED BEDSIDE ULTRASOUND: Performed by ED Physician - none LABS: Labs Reviewed - No data to display All other labs were within normal range or not returned as of this dictation. EMERGENCY DEPARTMENT COURSE and DIFFERENTIAL DIAGNOSIS/MDM: Vitals: Vitals: 04/01/23 1120 04/01/23 1121 BP: (!) 145/93 Pulse: 88 Resp: 16 Temp: 37.1 C (98.8 F) TempSrc: Temporal SpO2: 96% 96% Weight: (!) 141 kg (310 lb) Diagnoses as of 04/01/23 1139 Lumbar strain, initial encounter The patient presented with chief complaint of with chief complaint of with midline low back pain since yesterday. Patient states he had a surgery for herniated disc years ago in [place] has had some issues with this from time to time, no red flags such as renal disease, alcohol abuse, IV drug use. No falls injury or trauma. Denies radicular symptoms. Denies fevers or chills bowel or bladder incontinence or fecal or urinary retention.. The differential diagnosis associated with this patient's presentation includes lumbar strain, acute exacerbation of chronic low back pain. Diagnostic tests considered but not performed: Considered x-rays but there was no fall or trauma, considered laboratory studies but he has no red flag symptoms and a normal high-sensitivity neuroexam The patient will be discharged with symptom control and PCP follow-up. Patient is in agreement with this plan. Medications ketorolac (Toradol) injection 30 mg (has no administration in time range) orphenadrine (Norflex) injection 60 mg (has no administration in time range) Lidocaine 4 % patch 1 patch (has no administration in time range) REVAL: CRITICAL CARE TIME None CONSULTS: None PROCEDURES: Unless otherwise noted below, none Procedures Patients symptoms are consistent with sepsis, severe sepsis, or septic shock (If yes use .sepsiscoremeasure): no FINAL IMPRESSION 1. Lumbar strain, initial encounter DISPOSITION Discharge 04/01/2023 11:21:13 AM PATIENT REFERRED TO: No follow-up provider specified. DISCHARGE MEDICATIONS: New Prescriptions LIDOCAINE (LIDODERM) 5 % PATCH Apply 1 patch topically daily. Remove & discard patch within 12 hours or as directed by MD. NAPROXEN (NAPROSYN) 500 MG TABLET Take 1 tablet (500 mg) by mouth in the morning and 1 tablet (500 mg) in the evening. Take with meals. Do all this for 15 days. TIZANIDINE (ZANAFLEX) 4 MG TABLET Take 1 tablet (4 mg) by mouth every 8 hours as needed for muscle spasms for up to 7 days. (Comment: Please note this report has been produced using speech recognition software and may contain errors related to that system including errors in grammar, punctuation, and spelling, as well as words and phrases that may be inappropriate. If there are any questions or concerns please feel free to contact the dictating provider for clarification.) SHIRLEY Jameson CNP (electronically signed) Emergency Medicine Provider SHIRLEY Jameson CNP 04/01/23 1141 [facility] Evaluation note Note Date & Type Note Facility Evaluation note Diagnosis Lumbar strain, initial encounter- Primary documented in this encounter [facility] Evaluation note Note Date & Type Note Facility Evaluation note No assessment information availa [facility] Work Phone: Reason for referral (narrative) Note Date & Type Note Facility Reason for referral (narrative) No reason for referral information available [facility] Work Phone: Summary Purpose Family History No Family History Records Found Relationship Condition Age at Onset Recorded Date/T pieter uncle Diabetes mellitus Unknown mother Arthritis Unknown Advance Directives No Advanced Directives Records FoundNo Advanced Directives Records FoundNo Advanced Directives Records FoundNo Advanced Directives Records FoundNo Advanced Directives Records Found Chief Complaint and Reason for Visit Chief Complaint Admit Date LUMBAR SPINE October 23, 2024 10 :46am RM 1 October 23, 2024 11 :07am Additional Source Comments (unrecognized sect ion and content) No Status Records FoundNo Status Records FoundNo Status Records FoundNo Status Records FoundNo Status Records Found INFORMATION SOURCE (unrecogn ized section and content) DATE CREATED AUTHOR 01/17/2018 [facility] DATE CREATED AUTHOR AUTHOR'S ORGANIZ ATION 12/12/2018 [facility] DATE CREATED AUTHOR AUTHOR'S ORGANIZ ATION 04/02/2023 [facility] DATE CREATED AUTHOR AUTHOR'S ORGANIZ ATION 11/11/2024 [facility] DATE CREATED AUTHOR AUTHOR'S ORGANIZ ATION 11/13/2024 [facility] Reason for Visit (unrecogniz ed section and content) Reason Comments Back Pain Pt presents to ED wi th c/o R sided lower back pain since yesterday. Denies h/o kidney stones, dysuria, or dysuria. Denies any recents falls/trauma that would explain this pain. Pt is able to control bladder/stool. Scheduled Active and Recently Administ ered Medications (unrecognized section and content) Medication Order 03/30/2023 03/31/2023 04/01/2023 ketorolac (Toradol) injection 30 mg (COMPLETED) 30 mg, IntraMUSCular, Once, On Sat04/01/23 at 1125, For 1 dose 1151 (Given - Provid er: Yuko Grant RN) Lidocaine 4 % patch 1 patch 1 patch, TransDERmal, Administer over 12 Hours, Once, On Sat04/01/23 at 1125, For 1 dose, Apply patch to lower back. Patch may remain in place for up to 12 hours in any 24 hour period. 1156 (Medication Enedelia lied - Provider: Yuko Grant RN - Comment: LOWER BACK)1256 (Due: Medication Removed - Provider: Automatic Discharge Provider - Comment: Time automatically adjusted from order being discontinued) orphenadrine (Norflex) injection 60 mg (COMPLETED) 60 mg, IntraMUSCular, Once, On Sat04/01/23 at 1125, For 1 dose 1151 (Given - Provid er: Yuko Grant RN) Care Teams (unrecognized sec tion and content) Team Status: Active Member Role/Relationship Status Dates PAOLA Aquino Attending Provider Active Star t: October 23, 2024 Team Status: Inactive Member Role/Relationship Status Dates Dr. Pio Grayson MD Attending Provider Active S tart: October 23, 2024 End: October 23, 2024 Team Status: Inactive Member Role/Relationship Status Dates PAOLA Aquino Attending Provider Active Star t: October 23, 2024 End: October 23, 2024 Goals (unrecognized section and content) Goals may be documented in a n alternate sectionGoals may be documented in an alternate section FOR RECORDS PERTAINING TO PATIENTS WHO ARE OR HAVE BEEN ENROLLED IN A CHEMICAL DEPENDENCY/SUBSTANCEABUSE PROGRAM, SOME INFORMATION MAY BE OMITTED. This clinical summary was aggregated from multiple sources. Caution should be exercised in using it in the provision of clinical care. This summary normalizes information from multiple sources, and as a consequence, information in this document may materially change the coding, format and clinical context of patient data. In addition, data may be omitted in some cases. CLINICAL DECISIONS SHOULD BE BASED ON THE PRIMARY CLINICAL RECORDS. [employer] [facility]. provides no warranty or guarantee of the accuracy or completeness of information in this document.
== END | disposition home or self-care (01) ==
PROVIDERS: PCP Student in an Organized Health Care Education/Training Program; Referring Provider Student in an Organized Health Care Education/Training Program; Visit Provider Student in an Organized Health Care Education/Training Program
DX: M54.16 Radiculopathy, lumbar region (principal); Z87.890 Personal history of sex reassignment
CPT/HCPCS: 72158; A9575; A4216